=== PATIENT | male | born 1955 | race Caucasian/White ===

== ENCOUNTER → 2021-05-26 | Outpatient (CLI) | payer OTHER ==
[~2021-05-26] MED LIST: LOTREL 5-20 MG1 EACH PO; PROTONIX40 M2 PO; SIMVASTATIN40 MG PO; TOPROL XL50 MG PO
--- NOTE | ~2021-05-26 | OP ---
[facility] [address] [place] [address] OPERATIVE REPORT Name: CK COLLINS Room: [facility]#: [id number] Admission: 05/26/21 Attend Phys: Yousif Beckford Discharge: Date of : 57 Report #: [id number] THIS REPORT FOR: cc: Marianne Spring Linda J. DO Patterson,Yousif Lopez MD ~ DATE OF SURGERY: 05/27/2021 PREOPERATIVE DIAGNOSIS: Hiatal hernia with gastroesophageal reflux disease. POSTOPERATIVE DIAGNOSIS: Hiatal hernia with gastroesophageal reflux disease. OPERATION: Laparoscopic repair of hiatal hernia with mesh implantation with partial fundoplication. SURGEON: Dr. Yousif Beckford. ANESTHESIA: General. ESTIMATED BLOOD LOSS: Minimal. SPECIMEN: None. DESCRIPTION OF PROCEDURE: After informed consent was obtained, the patient was brought to the operating room and placed supine. SCDs were placed and working, preoperative antibiotics were administered, general anesthesia was induced. The abdomen was prepped and draped in the usual sterile fashion. A 1 mm incision was made in the left upper quadrant. Veress needle was inserted and pneumoperitoneum was established. A supraumbilical 10 mm trocar was placed above the umbilicus. This was done under direct vision. I then placed a left-sided 5 mm trocar and two right-sided 5 mm trocars. A Suresh retractor was inserted in the epigastrium and retracted the liver superiorly. The pars flaccida was incised and dissection was carried up to the right jorge, which was identified. Phrenoesophageal ligament was incised with the LigaSure. The left jorge was identified. I then dissected around the esophagus and I was able to place a Giovanni drain around the esophagus for retraction. Full mediastinal dissection of the hiatal hernia was then performed. An anterior and posterior dissection was undertaken to completely reduce the hernia sac. There was good mobility of the distal esophagus with 3 cm of intraabdominal esophagus. Short gastric vessels were taken down using the LigaSure device. This allowed for [place] [address] OPERATIVE REPORT Name: CK COLLINS Room: [facility]#: [id number] Admission: 05/26/21 Attend Phys: Yousif Beckford Discharge: Date of : 57 Report #: [id number] Cruroplasty was then performed. I used 2-0 V-Loc suture to suture up the crura posteriorly. I then placed OviTex mesh cut into a 1.5 cm pledgets. These were placed on each side and a 2-0 Ethibond suture was placed through the mesh and then through the crura and tied down to provide reinforcement. Partial fundoplication was then undertaken. The fundus of the stomach was then brought posteriorly around the distal esophagus. Two sutures were placed on each side of the esophagus. These were 2-0 Ethibond suture. This was a 270-degree wrap. The wrap having been successfully performed, the liver was then placed back into its anatomic position. The ports were then removed under direct vision. The 10-mm fascia was closed with a [id number]-fw-liili 0 Vicryl. Skin was closed with 4-0 Monocryl. Incisions were dressed with Steri-Strips. COMPLICATIONS: None. DISPOSITION: The patient was taken to recovery in satisfactory condition. By: [id number] Beckford MD /akil
== END ==
LOC: M.LAB 10:58
PROVIDERS: ATTEND Surgery
DX: Z01.812 Encounter for preprocedural laboratory examination (principal); Z20.822 Contact with and (suspected) exposure to COVID-19

== ENCOUNTER 2021-05-27 06:13 | Observation (INO) | payer OTHER ==
[~2021-05-27] VITALS: Ht 190.5 cm; Wt 117.9 kg
[2021-05-27 07:00] LABS: CALCIUM 8.8 mg/dL (8.5-10.1); CREATININE 1.4 mg/dL (0.6-1.3); POTASSIUM 4.2 mmol/L (3.5-5.1)
[2021-05-27 07:03] LABS: HEMATOCRIT 42.8 % (42.0-52.0); HEMOGLOBIN 14.7 gm/dL (14.0-18.0); MCH 30.1 pg (26.0-34.0); MCHC 34.3 g/dL (28.0-37.0); MCV 87.9 fL (80.0-100.0); MPV 8.3 fl. (7.2-11.1); RBC 4.88 mil/uL (4.50-6.00); RDW-CV 13.9 % (10.5-14.5); WBC 6.1 thou/uL (4.0-11.0)
--- NOTE | 2021-05-27 11:17 | EKG ---
[place] [address] ELECTROCARDIOGRAM REPORT Name: CK COLLINS Room: [facility]#: [id number] Admission: 05/27/21 Attend Phys: Yousif Eldridge Discharge: Date of : 57 Date of Service: 05/27/2153 Report #: [id number] THIS REPORT FOR: //name// [facility] Test Date: 2021-05-27 Test Time: 06:53:44 Pat Name: CK KARINA Department: Room: Gender: Wrecking Car Driver: : 1955 Requested By: Yousif Beckford Order Number: [id number] Anjum MD: Donnell Perez Measurements Intervals [place] Rate: 60 P: 16 TN: 189 QRS: 8 QRSD: 94 T: -9 QT: 406 QTc: 406 Interpretive Statements Sinus rhythm Borderline T abnormalities, inferior leads No previous ECG available for comparison Electronically Signed On 05-27-2021 11:17:12 [employer] by Donnell Perez [email or web address] <ELECTRONICALLY SIGNED> By: Donnell Perez MD, [facility] 05/27/21 1117 [id number] Donnell Perez MD, FACC /EPI
[2021-05-27 20:15] VITALS: BP 178/108
[2021-05-28 00:15] VITALS: BP 177/95
[2021-05-28 08:14] VITALS: BP 177/92
[2021-05-28] MEDS ORDERED: NORCO5 PO (08:33)
[2021-05-28 08:54] VITALS: BP 177/92
[2021-05-28 09:05] VITALS: BP 177/92
[2021-05-28 11:04] VITALS: BP 177/92
[2021-05-28 12:42] VITALS: BP 177/92
--- NOTE | 2021-06-05 11:09 | OP ---
[address] [address] OPERATIVE REPORT Name: CK COLLINS Room: [address] [place]#: [id number] Admission: 05/27/21 Attend Phys: Yousif Beckford Discharge: 05/28/21 Date of : 57 Report #: [id number] THIS REPORT FOR: cc: Marianne Spring Linda J. DO Patterson,Yousif Lopez MD ~ DATE OF SURGERY: 05/27/2021 PREOPERATIVE DIAGNOSIS: Hiatal hernia with gastroesophageal reflux disease. POSTOPERATIVE DIAGNOSIS: Hiatal hernia with gastroesophageal reflux disease. OPERATION: Laparoscopic repair of hiatal hernia with mesh implantation with partial fundoplication. SURGEON: Dr. Yousif Beckford. ANESTHESIA: General. ESTIMATED BLOOD LOSS: Minimal. SPECIMEN: None. DESCRIPTION OF PROCEDURE: After informed consent was obtained, the patient was brought to the operating room and placed supine. SCDs were placed and working, preoperative antibiotics were administered, general anesthesia was induced. The abdomen was prepped and draped in the usual sterile fashion. A 1 mm incision was made in the left upper quadrant. Veress needle was inserted and pneumoperitoneum was established. A supraumbilical 10 mm trocar was placed above the umbilicus. This was done under direct vision. I then placed a left-sided 5 mm trocar and two right-sided 5 mm trocars. A Suresh retractor was inserted in the epigastrium and retracted the liver superiorly. The pars flaccida was incised and dissection was carried up to the right jorge, which was identified. Phrenoesophageal ligament was incised with the LigaSure. The left jorge was identified. I then dissected around the esophagus and I was able to place a [place] drain around the esophagus for retraction. Full mediastinal dissection of the hiatal hernia was then performed. An anterior and posterior dissection was undertaken to completely reduce the hernia sac. There was good mobility of the distal esophagus with 3 cm of intraabdominal esophagus. Short gastric vessels were taken down using the LigaSure device. This allowed for flo[place] [address] OPERATIVE REPORT Name: CK COLLINS Room: [address] [place]#: [id number] Admission: 05/27/21 Attend Phys: Yousif Beckford Discharge: 05/28/21 Date of : 57 Report #: [id number] Cruroplasty was then performed. I used 2-0 V-Loc suture to suture up the crura posteriorly. I then placed OviTex mesh cut into a 1.5 cm pledgets. These were placed on each side and a 2-0 Ethibond suture was placed through the mesh and then through the crura and tied down to provide reinforcement. Partial fundoplication was then undertaken. The fundus of the stomach was then brought posteriorly around the distal esophagus. Two sutures were placed on each side of the esophagus. These were 2-0 Ethibond suture. This was a 270-degree wrap. The wrap having been successfully performed, the liver was then placed back into its anatomic position. The ports were then removed under direct vision. The 10-mm fascia was closed with a [id number] 0 Vicryl. Skin was closed with 4-0 Monocryl. Incisions were dressed with Steri-Strips. COMPLICATIONS: None. DISPOSITION: The patient was taken to recovery in satisfactory condition. <ELECTRONICALLY SIGNED> By: Yousif Beckford MD 06/05/21 1109 [id number] [id number] Beckford MD /nt
== END 2021-05-28 12:43 | disposition home or self-care (01) ==
LOC: M.SUR → M.TBA 13:08 → M.2W 13:37 → M.SUR 15:11 → M.2W 05-28 12:43
PROVIDERS: ADMIT Surgery; ATTEND Surgery
DX: K44.9 Diaphragmatic hernia without obstruction or gangrene (principal); Z79.899 Other long term (current) drug therapy; Z88.0 Allergy status to penicillin; Z88.1 Allergy status to other antibiotic agents; K21.9 Gastro-esophageal reflux disease without esophagitis; Z87.891 Personal history of nicotine dependence